=== PATIENT | male | born 1970 | race Caucasian/White ===

== ENCOUNTER → 2017-01-15 | Outpatient (CLI) | payer MEDICARE, BC ==
[~2017-01-15] MED LIST: /CIPR75TA PO; /OXYC15TA; /OXYC15TA OR; CEPH2CAP PO; CIPR25SS OR; DITR5TAB PO; FE T325T PO; FLAG500T; FLAGYL; IBUP200C PO; INSUH10VL SC; INSULANT; INSULANT SQ; KEFL500C OR; KEFL500C7 PO; LEVA250T PO; METH10TA2 PO; NOVOINJ3; NOVOLOG100 MG/ML; NOVOLOG100 MG/ML SQ; OXYC5CAP4; PREG100CA; PREG100CA PO; PREG50CA PO; PRIL20CA; PRIL40CA PO
--- NOTE | 2017-01-15 23:32 | ECWPNPC ---
PATIENT NAME: GARRETT MITCHELL : 1970 GENDER: MALE VISIT DATE: 01/15/2017 DISCHARGE DATE: 01/15/17 1208 VISIT LOCKED DATE TIME: PHYSICIAN: MARY LOU COOK RESOURCE: MARY LOU COOK REASON FOR APPOINTMENT 1. BACK PAIN HISTORY OF PRESENT ILLNESS HISTORY OF PRESENT ILLNESS: HERE FOR ROUTINE F/U OF CHRONIC LEFT HIP PAIN.HAVING INCREASE IN HIP PAIN DUE TO WET WEATHER TODAY.RATING PAIN 5/10.DESCRIBES PAIN SHARP AND STABBING.CURRENTLY USING METHADONE 10MG 2 TAB BID AND OXYCODONE 15MG UP TO 6 TABS. PER DAY PRN FOR SEVERE PAIN.FINDS MEDICATION SOMEWHAT EFFECTIVE AT REDUCING PAIN AND KEEPING HIM COMFORTABLE.DENIES SIDE EFFECTS WITH MEDICATION. PAIN THE PATIENT DESCRIBES THE PAIN... FALL RISK SCREENING: SCREENING :NO FALLS IN THE PAST YEAR CURRENT MEDICATIONS TAKING LANTUS 32 UNITS SUBCUTANEOUS DAILY TAKING NOVOLOG 100 UNIT/ML SOLUTION SUBCUTANEOUS SLIDING SCALE WITH MEALS TAKING TYLENOL EXTRA STRENGTH 500 MG TABLET 2 TABLETS NEEDED ORALLY EVERY 6 HRS TAKING OXYCODONE HCL 15 MG TABLET 1 ORALLY Q4-6H MDD 6 TAKING METHADONE HCL 10 MG TABLET 2 ORALLY BID MDD4 TAKING KEFLEX 500 MG CAPSULE 1 CAPSULE ORALLY TWICE A DAY NOT-TAKING METHADONE HCL 20 MG TABLET 2 ORALLY BID MDD4 NOT-TAKING PRILOSEC 40 MG CAPSULE DELAYED RELEASE 1 CAPSULE ORALLY ONCE A DAY NOT-TAKING IBUPROFEN 200 MG #60 200 MG TABLETS 2-4 TABLETS ORALLY EVERY 6-8 HOURS NOT-TAKING TESTOSTERONE 30 MG MISCELLANEOUS 1 10 MG TAB ORALLY DAILY NOT-TAKING CIPROFLOXACIN HCL 500 MG TABLET 1 TABLET ORALLY TWICE A DAY NOT-TAKING CLINDAMYCIN HCL 300 MG CAPSULE 1 CAPSULE ORALLY EVERY 8 HRS MEDICATION LIST REVIEWED AND RECONCILED WITH THE PATIENT PAST MEDICAL HISTORY DM CHRONIC BACK PAIN PARAPLEGIC ALLERGIES BACTRIM: NAUSEA/VOMITING: SIDE EFFECTS SOCIAL HISTORY GENERAL: TOBACCO USE ARE YOU A:NONSMOKER 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 NEW PATIENT PAIN DIARY TODAY'S VISITNOTES FROM 0-10, WHAT LEVEL IS YOUR PAIN TODAY?0 PAIN CLINIC PFS, CLERGY, PUBLIC HEALTH REFERRALS PFS REFERRAL NEEDED?NO CLERGY REFERRAL NEEDED?NO PUBLIC HEALTH REFERRAL NEEDED?NO WAS THE PROVIDER NOTIFIED OF ANY PERTINENT INFO?NO PFS REFERRAL NEEDED?NO CLERGY REFERRAL NEEDED?NO PUBLIC HEALTH REFERRAL NEEDED?NO WAS THE PROVIDER NOTIFIED OF ANY PERTINENT INFO?NO REVIEW OF SYSTEMS CONSTITUTIONAL: ANY CHANGE IN YOUR MEDICAL CONDITION? NO . CHILLS NO . FEVER NO . INFECTION: DO YOU HAVE NEW INFECTIONS? NO . DO YOU HAVE HISTORY OF MRSA? NO . MUSCULOSKELETAL: ANY NEW PATTERNS OF PAIN OR NUMBNESS? NO . GASTROENTEROLOGY: ANY NEW CHANGE IN BOWEL CONTROL? NO . GENITOURINARY: ANY NEW CHANGE IN BLADDER CONTROL? NO . IS THERE A CHANCE YOU COULD BE ? NO . HEMATOLOGY/LYMPH: DO YOU TAKE ANY BLOOD THINNERS? (FOR EXAMPLE- COUMADIN, PLAVIX, AGGRENOX, PLATEL, PRADAXA, OR XARELTO) NO . WHEN WAS YOUR LAST DOSE? DATE: TIME: . NEUROLOGY: HAVE YOU FALLEN IN THE PAST 6 MONTHS? NO . ANY NEW EXTREMITY NUMBNESS OR WEAKNESS? NO . CARDIOLOGY: DO YOU HAVE A PACEMAKER OR DEFIBRILLATOR? NO . RESPIRATORY: HAVE YOU BEEN SICK IN THE PAST WEEK? NO . FEVER NO . FLU LIKE SYMPTOMS? NO . COUGH NO . INTEGUMENTARY: DO YOU HAVE ANY RASHES OR OPEN SORES? YES SACRAL WOUND WITH WOUND VAC . ALLERGIC/IMMUNO: ARE YOU ALLERGIC TO SHELLFISH OR IV DYE? NO . ANY NEW ALLERGIES? NO . PSYCHIATRIC: DO YOU HAVE THOUGHTS OF HURTING YOURSELF OR SOMEONE ELSE? NO . ARE YOU ABUSED, NEGLECTED, OR IN AN UNSAFE ENVIRONMENT? NO . ENDOCRINOLOGY: ARE YOU DIABETIC? NO . OTHER: DO YOU NEED ANY PRESCRIPTIONS? YES OXYCODONE/METHADONE . IF YES, PLEASE LIST: ____ . ANY NEW PROBLEMS WITH YOUR MEDICATIONS? NO . WHEN DID YOU LAST EAT? ____ . WHEN DID YOU LAST DRINK? ____ . WHAT DID YOU LAST DRINK? ____ . NAME OF PERSON DRIVING YOU HOME? ____ . DO YOU HAVE ANY OTHER QUESTIONS OR CONCERNS NO . REVIEWED BY: PROVIDER: MARY LOU FARRELL . VITAL SIGNS WT 170 LBS, HT 69 IN, BMI 25.10 INDEX, BP 132/73 MM HG, HR 100 /MIN, RR 18 /MIN, TEMP 97.2 F, OXYGEN SAT % 100%, NA INITIALS SC 11:12, REVIEWED BY: KG. EXAMINATION GENERAL EXAMINATION: LUNGS:LUNG SOUNDS ARE CLEAR. HEART:HEART RATE REGULAR. MUSCULOSKELETAL:*PARAPLEGIA NAVAL DOWN. ASSESSMENTS CHRONIC BILATERAL LOW BACK PAIN WITHOUT SCIATICA - M54.5 (PRIMARY) CHRONIC PRESCRIPTION OPIATE USE - Z79.899 TREATMENT CHRONIC BILATERAL LOW BACK PAIN WITHOUT SCIATICA REFILL OXYCODONE HCL TABLET, 15 MG, 1, ORALLY, Q4-6H MDD 6, 90 DAYS, 540, REFILLS 0 REFILL METHADONE HCL TABLET, 10 MG, 2, ORALLY, BID MDD4, 90 DAYS, 360, REFILLS 0 NOTES: ISTOP REGISTRY REVIEWED AND DEMNOSTRATES COMPLLIANCE. BRINGS IN MEDICATIONS WHICH IS APPROPRIATE FOR WHAT WAS DISPENSED. RECENT URINE TOXICOLOGY REVIEWED. NO UNAUTHORIZED MEDICATIONS. NO ILLICIT SUBSTANCES AND PRESCRIBED MEDICATIONS WERE PRESENT. , RISKS AND BENEFITS OF NARCOTIC/OPIOD MEDICATIONS WERE REVIEWED WITH PATIENT - THIS INCLUDES BUT IS NOT LIMITED TO RISK OF DEPENDANCE/DEVELOPMENT OF ADDICTION, MOOD DISTURBANCE AND DEPRESSION, OSTEOPOROSIS, HORMONAL AND LABIDAL CHANGES, RESPIRATORY DEPRESSION AND . PATIENT IS ADVISED NOT TO DRIVE WHILE ON THESE MEDICATIONS.URINE TOX TODAY. PROCEDURE CODES FA211 ESTABILISHED PATIENT [facility] FACILITY CHARGE G8730 PAIN ASSESS POS TOOL F/U PLAN DOC G8427 DOC MEDS VERIFIED W/PT OR RE DISPOSITION & COMMUNICATION FOLLOW UP 3 MONTHS ELECTRONICALLY SIGNED BY BUD DAMON ON 01/15/2017 AT 04:28 PM EST DISCLAIMER : THIS IS A VISIT SUMMARY EXTRACTED FROM THE [employer] CHART. IT IS NOT A COPY OF THE [employer] PROGRESS NOTE. [email or web address]
== END ==
LOC: M PAIN 11:00
PROVIDERS: ATTEND Nurse Practitioner Family
DX: Z09 Encounter for follow-up examination after completed treatment for conditions other than malignant neoplasm (principal); G89.29 Other chronic pain; M54.5 Low back pain; E11.9 Type 2 diabetes mellitus without complications; G82.20 Paraplegia, unspecified; Z88.1 Allergy status to other antibiotic agents; Z79.4 Long term (current) use of insulin; Z79.891 Long term (current) use of opiate analgesic; Z79.899 Other long term (current) drug therapy; Z86.59 Personal history of other mental and behavioral disorders

== ENCOUNTER → 2017-01-26 | Outpatient (CLI) | payer MEDICARE, BC ==
[2017-01-26 13:55] LABS: CALCIUM LEVEL 7.6 MG/DL (8.5-10.1); CREATININE FOR GFR 2.21 MG/DL (0.70-1.30); GLOMERULAR FILTRATION RATE 34.6 (>60); POTASSIUM SERUM 4.7 MEQ/L (3.5-5.1)
== END ==
LOC: M LAB 12:45
PROVIDERS: ATTEND Nurse Practitioner Women's Health
DX: N13.39 Other hydronephrosis (principal); N26.1 Atrophy of kidney (terminal)

== ENCOUNTER → 2017-01-28 | Outpatient (REF) | payer MEDICARE, BC | LOC: M LAB REF 16:47 | PROVIDERS: ATTEND Internal Medicine Nephrology | DX: D50.0 Iron deficiency anemia secondary to blood loss (chronic) (principal) ==

== ENCOUNTER 2017-01-29 07:59 | Outpatient (CLI) | payer MEDICARE, BC | END 2017-01-29 12:45 | disposition home or self-care (01) | LOC: M INFU 07:59 | PROVIDERS: ATTEND Internal Medicine Nephrology | DX: D64.9 Anemia, unspecified (principal); N18.3 Chronic kidney disease, stage 3 (moderate) | CPT/HCPCS: 36430; P9016 ==

== ENCOUNTER → 2017-01-30 | Outpatient (CLI) | payer MEDICARE, BC ==
--- NOTE | 2017-01-30 14:07 | REP ---
CT ABDOMEN PELVIS WITHOUT IV OR ORAL CONTRAST: HISTORY: Hydronephrosis. Comparison study July 23, 2016. FINDINGS: Preliminary rn camp radiograph demonstrates a vena cava filter in place. Multisegment lumbar spine fusion is seen with metallic screw plate fixation device and cage-like metallic material across several lumbar spine segments unchanged. There are extensive chronic changes with bone resorption and remodeling in the hips and lower pelvis bilaterally. This is most pronounced about the left hip and left ischial region. There is evidence of a left femoral neck fracture appearing in the interval since the comparison study of July 23, 2016. CT FINDINGS: There is an area of linear fibrosis in the lingular segment of the left upper lobe at the left lung base. Lung bases are otherwise essentially clear. Some pleural calcification is seen. No focal hepatic or splenic lesion is seen. No adrenal lesion is observed. There is left renal cortical atrophy and moderate left-sided hydronephrosis again noted. The cortical atrophy in the left kidney appears somewhat more pronounced today than on the prior study. There is spray artifact from the fusion hardware in the lumbar spine. There are gallstones in the small contracted gallbladder. A right lower quadrant colostomy is noted. The Syed catheter is seen in the suprapubic position. No bowel obstruction is seen. Normal caliber aorta is noted. Right kidney is unremarkable. There are extensive postsurgical changes with fusion of the lumbar spine as before. The patient has developed progressive bony resorption change about the left hip. Resorption is seen along the posterior aspect of the acetabulum, extensively in the inferior pubic ramus, in the supra-acetabular iliac bone anteriorly and fragmented resorptive changes seen in the proximal femur on the left with a femoral neck fracture. This is ununited and displaced. Multiple bone fragments are seen. There is significant soft tissue swelling with low density area suggesting fluid all about the proximal femur left hip and anterior aspect of the left pelvis. This extends into the proximal thigh on the left and this soft tissue swelling contains multiple tiny air bubbles. This suggests active infection and osteomyelitis. This periarticular complex fluid collection with fragmentation and bony resorptive change occupies an area approximately 10 x 10 x 13 cm. Perhaps because of some spray artifact emanating from the lumbar spine metallic material, it is difficult to identify the left ureter. No definite point of obstruction is seen. IMPRESSION: 1. Progressive bony destructive osteomyelitis process with large soft tissue abscess containing some soft tissue gas about the left hip. There is a fracture of the left femoral neck which is ununited and displaced. Chronic osteomyelitis. Large abscess. 2. Moderate left-sided hydronephrosis and moderate left renal atrophy. This atrophy is more prominent than on the prior study. 3. Right lower quadrant colostomy. Suprapubic urinary catheter and prior lumbar spine fusion again seen. Signed by Russ Child MD 01/30/2017 03:28 P
== END ==
LOC: M RAD 12:12
PROVIDERS: ATTEND Nurse Practitioner Women's Health
DX: S79.092A Other physeal fracture of upper end of left femur, initial encounter for closed fracture (principal); X58.XXXA Exposure to other specified factors, initial encounter; Y92.9 Unspecified place or not applicable; Y93.9 Activity, unspecified; Y99.9 Unspecified external cause status; N26.1 Atrophy of kidney (terminal); N13.30 Unspecified hydronephrosis; M86.18 Other acute osteomyelitis, other site; L02.416 Cutaneous abscess of left lower limb; Z93.3 Colostomy status; Z96.0 Presence of urogenital implants; Z98.1 Arthrodesis status

== ENCOUNTER → 2017-02-09 | Outpatient (REF) | payer MEDICARE, BC ==
[2017-02-09 19:15] LABS: PERCENT SATURATION 11.8 % (19.7-37.4)
== END ==
LOC: M LAB REF 17:12
PROVIDERS: ATTEND Internal Medicine Medical Oncology
DX: D64.9 Anemia, unspecified (principal)

== ENCOUNTER → 2017-02-16 | Outpatient (REF) | payer MEDICARE, BC ==
[2017-02-16 19:52] LABS: FREE T4 1.27 NG/DL (0.76-1.46)
== END ==
LOC: M LAB REF 17:04
PROVIDERS: ATTEND Internal Medicine Medical Oncology
DX: D64.9 Anemia, unspecified (principal)

== ENCOUNTER → 2017-03-02 | Outpatient (REF) | payer MEDICARE, BC ==
[2017-03-02 13:52] LABS: PERCENT SATURATION 15.3 % (19.7-37.4)
== END ==
LOC: M LAB REF 12:52
PROVIDERS: ATTEND Internal Medicine Medical Oncology
DX: D64.9 Anemia, unspecified (principal)

== ENCOUNTER 2017-03-03 11:53 | Outpatient (CLI) | payer MEDICARE, BC ==
[~2017-03-03] VITALS: Ht 175.3 cm; Wt 77.0 kg
[~2017-03-03 11:53] MED LIST changes: +ACETAMINOPHEN TAB 650MG DOSE (2X325MG) PO SCH; +diphenhydrAMINE 25 MG CAP PO SCH
== END 2017-03-03 16:00 | disposition home or self-care (01) ==
LOC: M INFU 11:53
PROVIDERS: ATTEND Internal Medicine Medical Oncology
DX: D64.9 Anemia, unspecified (principal)
CPT/HCPCS: 36430; P9016

== ENCOUNTER → 2017-06-03 | Outpatient (CLI) | payer MEDICARE, BC ==
[~2017-06-03] MED LIST changes: -ACETAMINOPHEN TAB 650MG DOSE (2X325MG) PO SCH; +CEPH500C; -IBUP200C PO; +IBUP200C10 PO; +KEFL500C17 PO; -KEFL500C7 PO; +LANTINJ4; +LEVA1TAB PO; -LEVA250T PO; +METH10TA2; +NORCOTAB PO; +OXYC15TA76; +PRIL20TA2; +VITA1CAP25; -diphenhydrAMINE 25 MG CAP PO SCH
--- NOTE | 2017-06-25 00:27 | ECWPNPC ---
PATIENT NAME: GARRETT MITCHELL : 1970 GENDER: MALE VISIT DATE: 06/03/2017 DISCHARGE DATE: 06/03/17 1212 VISIT LOCKED DATE TIME: PHYSICIAN: MARY LOU COOK RESOURCE: MARY LOU COOK REASON FOR APPOINTMENT 1. LOW BACK HISTORY OF PRESENT ILLNESS HISTORY OF PRESENT ILLNESS: HERE FOR ROUTINE F/U OF CHRONIC LEFT HIP PAIN.HAVING INCREASE IN HIP PAIN DUE TO WET WEATHER TODAY.RATING PAIN 5/10.DESCRIBES PAIN SHARP AND STABBING.CURRENTLY USING METHADONE 10MG 2 TAB BID AND OXYCODONE 15MG UP TO 6 TABS. PER DAY PRN FOR SEVERE PAIN.FINDS MEDICATION SOMEWHAT EFFECTIVE AT REDUCING PAIN AND KEEPING HIM COMFORTABLE.DENIES SIDE EFFECTS WITH MEDICATION.HAS HAD BILATERAL HIP SURGERY AND LOW BACK SURGERY PAST FEW MONTHS IN [place].HAS WOUND VACS IN PLACE.WORSE AREA OF PAIN IS LOW BACK. PAIN THE PATIENT DESCRIBES THE PAIN... THE PATIENT DESCRIBES THE PAIN... FALL RISK SCREENING: SCREENING :NO FALLS IN THE PAST YEAR CURRENT MEDICATIONS TAKING LANTUS 32 UNITS SUBCUTANEOUS DAILY TAKING NOVOLOG 100 UNIT/ML SOLUTION SUBCUTANEOUS SLIDING SCALE WITH MEALS TAKING KEFLEX 500 MG CAPSULE 1 CAPSULE ORALLY TWICE A DAY TAKING OXYCODONE HCL 15 MG TABLET 1 ORALLY Q4-6H MDD 6 TAKING METHADONE HCL 10 MG TABLET 2 ORALLY BID MDD4 NOT-TAKING TYLENOL EXTRA STRENGTH 500 MG TABLET 2 TABLETS NEEDED ORALLY EVERY 6 HRS NOT-TAKING METHADONE HCL 20 MG TABLET 2 ORALLY BID MDD4 NOT-TAKING PRILOSEC 40 MG CAPSULE DELAYED RELEASE 1 CAPSULE ORALLY ONCE A DAY NOT-TAKING IBUPROFEN 200 MG #60 200 MG TABLETS 2-4 TABLETS ORALLY EVERY 6-8 HOURS NOT-TAKING TESTOSTERONE 30 MG MISCELLANEOUS 1 10 MG TAB ORALLY DAILY NOT-TAKING CIPROFLOXACIN HCL 500 MG TABLET 1 TABLET ORALLY TWICE A DAY NOT-TAKING CLINDAMYCIN HCL 300 MG CAPSULE 1 CAPSULE ORALLY EVERY 8 HRS MEDICATION LIST REVIEWED AND RECONCILED WITH THE PATIENT PAST MEDICAL HISTORY DM CHRONIC BACK PAIN PARAPLEGIC ALLERGIES BACTRIM: NAUSEA/VOMITING: SIDE EFFECTS SURGICAL HISTORY SKIN FLAP 09/05 18 PLUS BACK SURGERY 2004 TO PRESENT SUPERPUBIC CATHETER PLACEMENT 12/06/14 SKIN FLAP ON BUTTOCKS 04/2016 HIP SURGERY 11/07 R HIP SURGERY 03/2017 L HIP SURGERY 03/2017 LEFT FEMUR RESECTION, PARTIAL 03/2017 SPINAL SURGERY 04/2017 HOSPITALIZATION/MAJOR DIAGNOSTIC PROCEDURE [facility]NEY INFECTION 11/05 SURGERY RELATED REVIEW OF SYSTEMS REVIEWED BY: PROVIDER: MARY LOU FARRELL . CONSTITUTIONAL: ANY CHANGE IN YOUR MEDICAL CONDITION? NO . CHILLS NO . FEVER NO . INFECTION: DO YOU HAVE NEW INFECTIONS? NO . DO YOU HAVE HISTORY OF MRSA? NO . MUSCULOSKELETAL: ANY NEW PATTERNS OF PAIN OR NUMBNESS? NO . GASTROENTEROLOGY: ANY NEW CHANGE IN BOWEL CONTROL? NO . GENITOURINARY: ANY NEW CHANGE IN BLADDER CONTROL? NO . IS THERE A CHANCE YOU COULD BE ? NO . HEMATOLOGY/LYMPH: DO YOU TAKE ANY BLOOD THINNERS? (FOR EXAMPLE- COUMADIN, PLAVIX, AGGRENOX, PLATEL, PRADAXA, OR XARELTO) NO . WHEN WAS YOUR LAST DOSE? DATE: TIME: . NEUROLOGY: HAVE YOU FALLEN IN THE PAST 6 MONTHS? NO . ANY NEW EXTREMITY NUMBNESS OR WEAKNESS? NO . CARDIOLOGY: DO YOU HAVE A PACEMAKER OR DEFIBRILLATOR? NO . RESPIRATORY: HAVE YOU BEEN SICK IN THE PAST WEEK? NO . FEVER NO . FLU LIKE SYMPTOMS? NO . COUGH NO . INTEGUMENTARY: DO YOU HAVE ANY RASHES OR OPEN SORES? YES, SURGICAL WOUNDS, HIPS AND BACK . ALLERGIC/IMMUNO: ARE YOU ALLERGIC TO SHELLFISH OR IV DYE? NO . ANY NEW ALLERGIES? NO . PSYCHIATRIC: DO YOU HAVE THOUGHTS OF HURTING YOURSELF OR SOMEONE ELSE? NO . ARE YOU ABUSED, NEGLECTED, OR IN AN UNSAFE ENVIRONMENT? NO . ENDOCRINOLOGY: ARE YOU DIABETIC? YES . OTHER: DO YOU NEED ANY PRESCRIPTIONS? YES, OXYCODONE, METHADONE . IF YES, PLEASE LIST: ____ . ANY NEW PROBLEMS WITH YOUR MEDICATIONS? NO . WHEN DID YOU LAST EAT? ____ . WHEN DID YOU LAST DRINK? ____ . WHAT DID YOU LAST DRINK? ____ . NAME OF PERSON DRIVING YOU HOME? ____ . DO YOU HAVE ANY OTHER QUESTIONS OR CONCERNS NO . VITAL SIGNS WT 160.0 LBS, HT 69 IN, BMI 23.63 INDEX, BP 133/60 MM HG, HR 95 /MIN, RR 16 /MIN, TEMP 97.6 F, OXYGEN SAT % 99%, SAFE IN ENV? (Y/N) Y, NA INITIALS TL 1052, REVIEWED BY: [email or web address] WEIGHT, PT STATED, UNABLE TO STAND- TL. EXAMINATION GENERAL EXAMINATION: LUNGS:LUNG SOUNDS ARE CLEAR. HEART:HEART RATE REGULAR. MUSCULOSKELETAL:*PARAPLEGIA NAVAL DOWN. ASSESSMENTS CHRONIC BILATERAL LOW BACK PAIN WITHOUT SCIATICA - M54.5 (PRIMARY) CHRONIC PRESCRIPTION OPIATE USE - Z79.899 TREATMENT CHRONIC BILATERAL LOW BACK PAIN WITHOUT SCIATICA REFILL OXYCODONE HCL TABLET, 15 MG, 1, ORALLY, Q4-6H MDD 6, 90 DAYS, 540, REFILLS 0 REFILL METHADONE HCL TABLET, 10 MG, 2, ORALLY, BID MDD4, 90 DAYS, 360, REFILLS 0 NOTES: ISTOP REGISTRY REVIEWED AND DEMNOSTRATES COMPLLIANCE. BRINGS IN MEDICATIONS WHICH IS APPROPRIATE FOR WHAT WAS DISPENSED. RECENT URINE TOXICOLOGY REVIEWED. NO UNAUTHORIZED MEDICATIONS. NO ILLICIT SUBSTANCES AND PRESCRIBED MEDICATIONS WERE PRESENT. , RISKS AND BENEFITS OF NARCOTIC/OPIOD MEDICATIONS WERE REVIEWED WITH PATIENT - THIS INCLUDES BUT IS NOT LIMITED TO RISK OF DEPENDANCE/DEVELOPMENT OF ADDICTION, MOOD DISTURBANCE AND DEPRESSION, OSTEOPOROSIS, HORMONAL AND LABIDAL CHANGES, RESPIRATORY DEPRESSION AND . PATIENT IS ADVISED NOT TO DRIVE WHILE ON THESE MEDICATIONS. PROCEDURE CODES FA211 ESTABILISHED PATIENT [facility] CHARGE DISPOSITION & COMMUNICATION FOLLOW UP 3 MONTHS ELECTRONICALLY SIGNED BY BUD DAMON ON 06/24/2017 AT 07:36 PM EDT DISCLAIMER : THIS IS A VISIT SUMMARY EXTRACTED FROM THE [employer] CHART. IT IS NOT A COPY OF THE [employer] PROGRESS NOTE. MILDRED
== END | disposition home or self-care (01) ==
LOC: M PAIN 10:40
PROVIDERS: ATTEND Nurse Practitioner Family
DX: G89.29 Other chronic pain (principal); M54.5 Low back pain; E11.9 Type 2 diabetes mellitus without complications; G82.20 Paraplegia, unspecified; Z79.4 Long term (current) use of insulin; Z79.891 Long term (current) use of opiate analgesic; Z88.1 Allergy status to other antibiotic agents

== ENCOUNTER → 2017-06-10 | Outpatient (REF) | payer MEDICARE, BC | LOC: M LAB REF 16:52 | PROVIDERS: ATTEND Internal Medicine Nephrology | DX: D50.0 Iron deficiency anemia secondary to blood loss (chronic) (principal) ==

== ENCOUNTER 2017-06-11 10:25 | Outpatient (CLI) | payer MEDICARE, BC ==
[~2017-06-11] VITALS: Ht 177.8 cm; Wt 72.7 kg
[~2017-06-11 10:25] MED LIST changes: -CEPH500C; -LANTINJ4; -METH10TA2; -NORCOTAB PO; -OXYC15TA76; -PRIL20TA2; -VITA1CAP25
[2017-06-11 12:18] VITALS: BP 131/61
== END 2017-06-11 16:49 | disposition home or self-care (01) ==
LOC: M OPCLI4PV 10:25 → M INFU 10:25 → M MSPAV 10:35 → M OPCLI4PV 16:49
PROVIDERS: ATTEND Internal Medicine Nephrology
DX: D50.0 Iron deficiency anemia secondary to blood loss (chronic) (principal); Z88.1 Allergy status to other antibiotic agents; Z79.899 Other long term (current) drug therapy; Z79.4 Long term (current) use of insulin
CPT/HCPCS: 36430; P9016

== ENCOUNTER 2017-07-21 09:58 | Emergency (ER) | payer MEDICARE, BC ==
[~2017-07-21] VITALS: Ht 175.3 cm; Wt 63.6 kg
[2017-07-21] MEDS ORDERED: OXYC15TA76 (10:09)
[2017-07-21] MEDS ORDERED: VITA1CAP25 (10:09)
[2017-07-21] MEDS ORDERED: METH10TA2 (10:09)
[2017-07-21] MEDS ORDERED: NOVOINJ3 (10:09)
[2017-07-21] MEDS ORDERED: LANTINJ4 (10:09)
[2017-07-21] MEDS ORDERED: PRIL20TA2 (10:09)
[2017-07-21] MEDS ORDERED: CEPH500C (10:09)
[2017-07-21] MEDS ORDERED: NORCO, ANEXSIA 5/325MG TABLET (HYDROcodone/ACETAMINOPHEN) PO ONE (10:30)
--- NOTE | 2017-07-21 10:56 | REP ---
RIGHT SHOULDER, THREE VIEWS: HISTORY: Trauma. There is a comminuted fracture of the right scapula. There is no dislocation. The joint spaces are normal in appearance. IMPRESSION: Comminuted fracture of the scapula. Signed by Bladimir Santa MD 07/21/2017 10:57 A
[2017-07-21] MEDS ORDERED: NS 1,000 ML IV ONE (11:00)
[2017-07-21 11:35] LABS: INR 1.1
[2017-07-21 11:36] LABS: ADD MORPHOLOGY? YES; BASO % 0.3 % (0.0-1.0); EOS % 0.2 % (0.0-3.0); LARGE UNSTAINED CELL # 0.1 K/mm3 (0.0-0.4); LARGE UNSTAINED CELL % 0.8 % (0.0-4.0); LYMPH # 0.7 K/mm3 (1.5-4.5); LYMPH % 6.1 % (24.0-44.0); MEAN CORPUSCULAR HEMOGLOBIN 24.1 pg (27.0-33.0); MEAN CORPUSCULAR HGB CONC 29.6 g/dl (32.0-36.5); MEAN CORPUSCULAR VOLUME 81.3 fl (80.0-96.0); MONO # 0.4 K/mm3 (0.0-0.8); NEUTROPHILS # 9.4 K/mm3 (1.8-7.7); NEUTROPHILS % 88.6 % (36.0-66.0); PLATELET COUNT, AUTOMATED 568 k/mm3 (150-450); RED CELL DISTRIBUTION WIDTH 17.2 % (11.5-14.5); WHITE BLOOD COUNT 10.6 K/mm3 (4.0-10.0)
[2017-07-21 11:49] LABS: ALBUMIN 1.9 GM/DL (3.2-5.2); ALBUMIN/GLOBULIN RATIO 0.35 (1.00-1.93); ALKALINE PHOSPHATASE 242 U/L (45-117); ALT/SGPT 8 U/L (12-78); AMYLASE 21 U/L (25-115); ANION GAP 8 MEQ/L (8-16); AST/SGOT 20 U/L (15-37); BILIRUBIN,DIRECT < 0.1 MG/DL (0.0-0.2); BILIRUBIN,TOTAL 0.2 MG/DL (0.2-1.0); BLOOD UREA NITROGEN 24 MG/DL (7-18); CALCIUM LEVEL 9.1 MG/DL (8.5-10.1); CARBON DIOXIDE LEVEL 26 MEQ/L (21-32); CHLORIDE LEVEL 103 MEQ/L (98-107); GLOMERULAR FILTRATION RATE 43.9 (>60); GLUCOSE, FASTING 208 MG/DL (70-105); POTASSIUM SERUM 4.3 MEQ/L (3.5-5.1); SODIUM LEVEL 137 MEQ/L (136-145); TOTAL PROTEIN 7.4 GM/DL (6.4-8.2)
[2017-07-21] MEDS ORDERED: ONDANSETRON 4MG/2ML VIAL (J2405) IV ONE (12:00)
[2017-07-21] MEDS ORDERED: MORPHINE 4 MG/ML 1ML SYRINGE IV ONE (12:00)
--- NOTE | 2017-07-21 12:41 | REP ---
CT Head without contrast HISTORY: Trauma COMPARISON: None There is no intraparenchymal hemorrhage, acute infarct, mass or midline shift. The ventricular system and cortical sulci are dilated consistent with minimal volume loss. There is no extra cerebral collection. There is no fracture. The visualized sinuses are clear. IMPRESSION: Minimal volume loss. Signed by Bladimir Santa MD 07/21/2017 12:33 P
[2017-07-21 12:43] LABS: HYPOCHROMASIA 2+
--- NOTE | 2017-07-21 12:59 | REP ---
CT chest without contrast: History: Trauma. No comparison chest CT. CT findings: There is a linear opacity in the lingular segment of the left upper lobe at the left lung base consistent with plate-like atelectasis. There is also some linear scarring in the left lower lobe. There is no evidence of pneumothorax or hydrothorax. No contusion is seen. The thoracic aorta appears normal in size and contour. No mediastinal hematoma is seen. There is some bilateral mild gynecomastia noted incidentally. Posterior element thoracic spine fusion is seen from the mid thoracic level caudally. No rib, thoracic spine, or other fracture is seen. There is an old healed wedge compression deformity in the lower thoracic spine. This is unchanged from comparison chest x-ray December 15, 2014. Impression: No acute traumatic abnormality. Fusion changes in the lower thoracic spine. Discoid atelectasis in the left base involving the lingula. Signed by Russ Child MD 07/21/2017 05:16 P
--- NOTE | 2017-07-21 13:13 | REP ---
CT CERVICAL SPINE WITHOUT CONTRAST: HISTORY: Trauma. There are fractures of the right C6 and 7 transverse processes. There is no subluxation. Disc bulges are present at the C3-4 through C6-7 levels. There is minimal narrowing of the spinal canal. Uncinate process hypertrophy is present at the C3-4 level. This produces minimal narrowing of the C3 neural foramina. The remaining neural foramina are patent. The C5-6 intervertebral disc is decreased in height consistent with disc degeneration. IMPRESSION: 1. There are fractures of the right C6 and 7 transverse processes. 2. There is cervical spondylosis at the C3-4 through C6-7 levels. Signed by Bladimir Santa MD 07/21/2017 01:26 P
--- NOTE | 2017-07-21 13:14 | REP ---
CT ABDOMEN PELVIS WITHOUT CONTRAST: 07/21/2017 CLINICAL HISTORY: Trauma. COMPARISON: 01/30/2017 TECHNIQUE: Noncontrast scanning through the abdomen and pelvis with coronal and sagittal reconstructions. FINDINGS: CT ABDOMEN: [employer] film shows prior lumbar fusion with hardware, vena cava filter, and severe chronic changes of the pelvis and hips. An ostomy is noted over the right midabdomen. The lung bases show curvilinear fibroatelectatic change in the lingula, but are otherwise clear. The heart is not enlarged. There is no pericardial thickening or effusion. No gross hiatal hernia. I see no hepatosplenomegaly, focal hepatic or splenic lesion. Gallbladder shows a few small calcified stones in its dependent portion. It is moderately distended. Vena cava filter is again seen and unchanged. Minimal hydronephrosis on the right without stone or mass. No gross hydroureter or ureteral stone. The left kidney shows atrophy, cortical thinning, and hydronephrosis, unchanged. Extensive fusion hardware in the lumbar spine. Allons artifact with posterior elements fused throughout the spine, screws through the vertebral bodies at the upper and lower end of the fusion hardware device noted. Small bowel loops are without dilatation. There is a colostomy in the right midabdomen, unchanged. No ventral hernia. CT PELVIS: Lower sacrum has been resected, as before. Chronic thickening and destructive changes of the left greater than right hip with extensive heterotopic and dystrophic bone formation about the right hip and hemipelvis, representing chronic osteomyelitis with heterotopic bone. There is progression of the destruction of the humeral head and fragmentation thereof, it is chronically dislocated. There is a prominent open wound over the lower pelvis and sacral region extending to the inferior pubic ramus with infection and destruction of that bone on the right greater than left. Pressure ulcers, large on both sides, broader on the left, deeper on the right . Small bowel loops are not abnormally dilated. The deep pelvis, residual rectum, sigmoid, and left colon noted. They are not distended, and only small amounts of retained stool and oral contrast are seen in them, as on the previous study. The bladder shows diffuse wall thickening. There is a suprapubic catheter evident within it. IMPRESSION: 1. Severe atrophy with some hydronephrosis left kidney, unchanged. 2. Mild hydronephrosis right kidney with thickened wall of the bladder and a suprapubic Syed in place. 3. Extensive postsurgical change with fusion of the entire lumbar spine and resection of most of the sacrum below S1 with extensive chronic osteomyelitis changes with heterotopic and destructive bone appearance, left greater than right, hip. The large volume of coarse calcification adjacent to the left hip from heterotopic bone formation in the soft tissues is larger in size and number of bony fragments in the soft tissue than on the previous study. 4. Large soft tissue ulcerations in the lower pelvis over the pubic rami inferiorly, right greater than left, with exposed bone on the right and a broader ulceration on the left. 5. Cholelithiasis. 6. Right midabdomen colostomy and a vena cava filter, unchanged. No obstruction. Signed by Wilbert Thompson MD 07/22/2017 04:45 P
[2017-07-21] MEDS ORDERED: NORCOTAB PO (13:21)
[2017-07-21 13:34] VITALS: BP 163/78
--- NOTE | 2017-07-23 09:43 | ED PDOC ---
Post-Departure Follow-Up radiology report faxed to Lexis Cleaning MD Jul 23, 2017 09:43
== END 2017-07-21 13:36 | disposition home or self-care (01) ==
LOC: M ED 09:58
DX: S42.101A Fracture of unspecified part of scapula, right shoulder, initial encounter for closed fracture (principal); S12.500A Unspecified displaced fracture of sixth cervical vertebra, initial encounter for closed fracture; S12.600A Unspecified displaced fracture of seventh cervical vertebra, initial encounter for closed fracture; M47.812 Spondylosis without myelopathy or radiculopathy, cervical region; S00.01XA Abrasion of scalp, initial encounter; V86.99XA Unspecified occupant of other special all-terrain or other off-road motor vehicle injured in nontraffic accident, initial encounter; Y92.830 Public park as the place of occurrence of the external cause; E11.9 Type 2 diabetes mellitus without complications; G82.20 Paraplegia, unspecified; Z86.14 Personal history of Methicillin resistant Staphylococcus aureus infection; Z96.0 Presence of urogenital implants; Z88.1 Allergy status to other antibiotic agents; Z79.899 Other long term (current) drug therapy; Z79.4 Long term (current) use of insulin; Z79.2 Long term (current) use of antibiotics; Z79.891 Long term (current) use of opiate analgesic
CPT/HCPCS: 70450; 71250; 72125; 73030; 74176; 80048; 80076; 81001; 82150; 83605; 83690; 85025; 85610; 85730; 86850; 86900; 86901; 96361; 96374; 96375; 99284; J2405

== ENCOUNTER → 2017-09-24 | Outpatient (CLI) | payer MEDICARE, BC ==
[~2017-09-24] MED LIST changes: +CEPH500C; +LANTINJ4; +METH10TA2; +NORCOTAB PO; +OXYC15TA76; +PRIL20TA2; +VITA1CAP25
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
== END ==
LOC: M PAIN 14:30
PROVIDERS: ATTEND Nurse Practitioner Family
DX: G89.29 Other chronic pain (principal); M54.5 Low back pain; M25.559 Pain in unspecified hip; E11.9 Type 2 diabetes mellitus without complications; G82.20 Paraplegia, unspecified; F11.20 Opioid dependence, uncomplicated; Z88.1 Allergy status to other antibiotic agents; Z79.4 Long term (current) use of insulin; Z79.891 Long term (current) use of opiate analgesic; Z79.899 Other long term (current) drug therapy

== ENCOUNTER → 2017-12-31 | Outpatient (CLI) | payer MEDICARE, BC | LOC: M PAIN 09:15 | DX: M54.5 Low back pain (principal); G89.29 Other chronic pain; E11.9 Type 2 diabetes mellitus without complications; Z79.4 Long term (current) use of insulin; Z79.891 Long term (current) use of opiate analgesic; Z79.899 Other long term (current) drug therapy; Z88.1 Allergy status to other antibiotic agents; Z88.0 Allergy status to penicillin | CPT/HCPCS: G0463 ==

== ENCOUNTER → 2018-03-30 | Outpatient (CLI) | payer MEDICARE, BC | LOC: M PAIN 10:00 | DX: M54.5 Low back pain (principal); G89.29 Other chronic pain; E11.9 Type 2 diabetes mellitus without complications; G82.20 Paraplegia, unspecified; Z79.4 Long term (current) use of insulin; Z79.891 Long term (current) use of opiate analgesic; Z79.899 Other long term (current) drug therapy; Z88.1 Allergy status to other antibiotic agents | CPT/HCPCS: G0463 ==

== ENCOUNTER → 2018-08-02 | Outpatient (CLI) | payer MEDICARE, BC | LOC: M PAIN 10:00 | DX: M54.5 Low back pain (principal); G89.29 Other chronic pain; E11.9 Type 2 diabetes mellitus without complications; G82.20 Paraplegia, unspecified; F11.20 Opioid dependence, uncomplicated; Z79.4 Long term (current) use of insulin; Z79.891 Long term (current) use of opiate analgesic; Z88.1 Allergy status to other antibiotic agents | CPT/HCPCS: G0463 ==

== ENCOUNTER 2018-08-24 11:56 | Emergency (ER) | payer MEDICARE, BC ==
[2018-08-24 13:32] LABS: BASO % 0.2 % (0.0-1.0); EOS # 0.1 10^3/uL (0.0-0.50); EOS % 0.4 % (0.0-3.0); HEMATOCRIT 35.8 % (42.0-52.0); HEMOGLOBIN 10.1 g/dl (13.5-17.5); IMMATURE GRANULOCYTE % 0.5 % (0-3.0); LYMPH # 0.7 10^3/uL (1.5-4.5); MEAN CORPUSCULAR HEMOGLOBIN 20.5 pg (27.0-33.0); MEAN CORPUSCULAR HGB CONC 28.2 g/dl (32.0-36.5); MEAN CORPUSCULAR VOLUME 72.6 fl (80.0-96.0); MONO # 0.6 10^3/uL (0.0-0.8); MONO % 4.2 % (0.0-5.0); NEUTROPHILS # 12.4 10^3/uL (1.8-7.7); NEUTROPHILS % 89.7 % (36.0-66.0); PLATELET COUNT, AUTOMATED 461 10^3/uL (150-450); RED BLOOD COUNT 4.93 10^6/uL (4.30-6.10); RED CELL DISTRIBUTION WIDTH 15.7 % (11.5-14.5); WHITE BLOOD COUNT 13.9 10^3/uL (4.0-10.0)
[2018-08-24 13:34] LABS: PROTEIN, URINE MANUAL REFLEX 2+ mg/dL (NEGATIVE); SP GRAVITY,URINE MANUAL REFLEX 1.005 (1.002-1.035)
[2018-08-24 13:35] LABS: BILIRUBIN, URINE MANUAL NEGATIVE (NEGATIVE); BLOOD URINE MANUAL RFX POSITIVE (NEGATIVE); GLUCOSE, URINE (UA) MANUAL 4+(1000 MG/DL) mg/dL (NEGATIVE); KETONE, URINE MANUAL 2+ mg/dL (NEGATIVE); MICROSCOPIC INDICATED? RFX YES (NO); NITRITE, URINE MANUAL RFX NEGATIVE (NEGATIVE); UROBILINOGEN, URINE MANUAL NORMAL (NORMAL)
[2018-08-24 13:39] LABS: WBC, URINE MAN RFX TNTC /hpf (0-3)
[2018-08-24 13:40] LABS: BACTERIA, URINE LARGE AMOUNT; HYALINE CAST, URINE NONE SEEN /lpf (0-1); SQUAMOUS EPITHELIAL CELL URINE NONE SEEN /hpf (SMALL AMT); TRANSITIONAL EPI CELLS, URINE SMALL AMOUNT /hpf
[2018-08-24 14:23] LABS: MICROSCOPIC EXAM PERFORMED
[2018-08-24 14:24] LABS: ANION GAP 10 MEQ/L (8-16); BLOOD UREA NITROGEN 18 MG/DL (7-18); CALCIUM LEVEL 8.4 MG/DL (8.5-10.1); CARBON DIOXIDE LEVEL 29 MEQ/L (21-32); CHLORIDE LEVEL 95 MEQ/L (98-107); CREATININE FOR GFR 1.39 MG/DL (0.70-1.30); GLOMERULAR FILTRATION RATE 58.6 (>60); GLUCOSE, FASTING 420 MG/DL (70-100); POTASSIUM SERUM 4.7 MEQ/L (3.5-5.1); SODIUM LEVEL 134 MEQ/L (136-145)
== END 2018-08-24 15:10 | disposition home or self-care (01) ==
LOC: M ED 11:56
DX: N30.01 Acute cystitis with hematuria (principal); N30.21 Other chronic cystitis with hematuria; E11.65 Type 2 diabetes mellitus with hyperglycemia; Z96.0 Presence of urogenital implants; G82.20 Paraplegia, unspecified; K21.9 Gastro-esophageal reflux disease without esophagitis; Z87.440 Personal history of urinary (tract) infections; Z87.448 Personal history of other diseases of urinary system; Z88.1 Allergy status to other antibiotic agents; Z88.2 Allergy status to sulfonamides; Z79.4 Long term (current) use of insulin; Z79.899 Other long term (current) drug therapy
CPT/HCPCS: 80048

== ENCOUNTER → 2018-10-07 | Outpatient (CLI) | payer MEDICARE, BC ==
[2018-10-07 13:03] LABS: CREATININE FOR GFR 1.09 MG/DL (0.70-1.30); GLOMERULAR FILTRATION RATE > 60.0 (>60)
[2018-10-07 14:54] LABS: CREATININE BF 48.9 MG/DL (NOT ESTABLISHED); SOURCE, BODY FLUID CREATININE OTHER
== END ==
LOC: M LAB 11:22
DX: N31.1 Reflex neuropathic bladder, not elsewhere classified (principal)
CPT/HCPCS: 82565

== ENCOUNTER → 2018-10-18 | Outpatient (CLI) | payer MEDICARE, BC ==
[~2018-10-18] MED LIST changes: -/CIPR75TA PO; -/OXYC15TA; -/OXYC15TA OR; -CEPH2CAP PO; -CEPH500C; -CIPR25SS OR; +CYSTO-CONRAY II 17.2% 250ML VIAL (Q9958) As Ordered; -DITR5TAB PO; -FE T325T PO; -FLAG500T; -FLAGYL; -IBUP200C10 PO; -INSUH10VL SC; -INSULANT; -INSULANT SQ; -KEFL500C OR; -KEFL500C17 PO; -LANTINJ4; -LEVA1TAB PO; -METH10TA2; -METH10TA2 PO; -NORCOTAB PO; -NOVOINJ3; -NOVOLOG100 MG/ML; -NOVOLOG100 MG/ML SQ; -OXYC15TA76; -OXYC5CAP4; -PREG100CA; -PREG100CA PO; -PREG50CA PO; -PRIL20CA; -PRIL20TA2; -PRIL40CA PO; -VITA1CAP25
== END ==
LOC: M RADPRO 11:24
DX: N31.1 Reflex neuropathic bladder, not elsewhere classified (principal); N36.0 Urethral fistula; M85.9 Disorder of bone density and structure, unspecified; Z93.50 Unspecified cystostomy status
CPT/HCPCS: 52000

== ENCOUNTER → 2018-10-25 | Outpatient (REF) | payer MEDICARE, BC | LOC: M LAB REF 17:21 | DX: Z01.818 Encounter for other preprocedural examination (principal); L98.8 Other specified disorders of the skin and subcutaneous tissue; N39.0 Urinary tract infection, site not specified | CPT/HCPCS: 87186 ==

== ENCOUNTER → 2018-10-25 | Outpatient (CLI) | payer MEDICARE, BC ==
[2018-10-25 17:45] LABS: INR 1.09; PROTHROMBIN TIME 14.2 SECONDS (12.1-14.4)
== END ==
LOC: M SMT 14:23
DX: L98.8 Other specified disorders of the skin and subcutaneous tissue (principal)
CPT/HCPCS: 85610

== ENCOUNTER → 2018-11-01 | Outpatient (CLI) | payer MEDICARE, BC ==
[~2018-11-01] MED LIST changes: +/CIPR75TA PO; +/OXYC15TA; +/OXYC15TA OR; +BACT800T5 PO; +CEPH2CAP PO; +CEPH500C; +CIPR-249 PO; +CIPR25SS OR; -CYSTO-CONRAY II 17.2% 250ML VIAL (Q9958) As Ordered; +DITR5TAB PO; +FE T325T PO; +FLAG500T; +FLAGYL; +IBUP200C25 PO; +INSUH10VL SC; +INSULANT; +INSULANT SQ; +KEFL500C OR; +KEFL500C17 PO; +LANTINJ4; +LEVA1TAB2 PO; +LEVA250T13 PO; +METH10TA2; +METH10TA2 PO; +NORCOTAB PO; +NOVOINJ3; +NOVOLOG100 MG/ML; +NOVOLOG100 MG/ML SQ; +OXYC10TA12 PO; +OXYC15TA76; +OXYC5CAP4; +OXYCO5TA PO; +PEPC1TAB5 PO; +PREG100CA; +PREG100CA PO; +PREG50CA PO; +PRIL20CA; +PRIL20TA2; +PRIL40CA PO; +TETR1CAP2 PO; +TRES1INJ2 SC; +TRES1INJ2 SQ; +VITA1CAP25
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
== END ==
LOC: M PAIN 10:00
PROVIDERS: ATTEND Nurse Practitioner Family
DX: M54.5 Low back pain (principal); E11.9 Type 2 diabetes mellitus without complications; G82.20 Paraplegia, unspecified; Z88.1 Allergy status to other antibiotic agents; Z88.2 Allergy status to sulfonamides; Z79.891 Long term (current) use of opiate analgesic; Z79.899 Other long term (current) drug therapy; Z79.4 Long term (current) use of insulin

== ENCOUNTER 2018-11-03 08:53 | Day surgery (SDC) | payer MEDICARE, BC ==
[2018-11-03] MEDS ORDERED: LR 1,000 ML IV ×2 (09:00→14:45)
[2018-11-03 10:18] LABS: BEDSIDE GLUCOSE 145 MG/DL (70-105)
[2018-11-03] MEDS ORDERED: ONDANSETRON 4MG/2ML VIAL (J2405) As Ordered (11:59)
[2018-11-03] MEDS ORDERED: LIDOCAINE 2% INJ 100 MG/5 ML SDV (FOR ANES.) As Ordered (11:59)
[2018-11-03] MEDS ORDERED: PROPOFOL 200 MG/20 ML VIAL As Ordered (11:59)
[2018-11-03] MEDS ORDERED: MIDAZOLAM INJ 2 MG/2 ML VIAL (J2250) As Ordered (12:00)
[2018-11-03] MEDS ORDERED: fentaNYL 100 MCG/2 ML INJECTION (J3010) As Ordered ×2 (12:00→13:39)
[2018-11-03] MEDS: GENTAMICIN 80 MG in APPROPRIATE DILUENT 1 EA IV (13:48)
[2018-11-03] MEDS ORDERED: PERCOCET 5MG/325MG TAB PO (14:45)
[2018-11-03] MEDS ORDERED: ONDANSETRON 4MG/2ML VIAL (J2405) IV (14:45)
[2018-11-03] MEDS ORDERED: ACETAMINOPHEN TAB 650MG DOSE (2X325MG) PO (14:45)
[2018-11-03] MEDS ORDERED: fentaNYL 100 MCG/2 ML INJECTION (J3010) IV (14:45)
[2018-11-03 15:01] LABS: BEDSIDE GLUCOSE 56 MG/DL (70-105)
[2018-11-03 15:06] LABS: BEDSIDE GLUCOSE 64 MG/DL (70-105)
[2018-11-03 15:23] LABS: BEDSIDE GLUCOSE 116 MG/DL (70-105)
== END 2018-11-03 15:55 | disposition home or self-care (01) ==
LOC: M SDC 08:53
DX: N35.919 Unspecified urethral stricture, male, unspecified site (principal); N36.0 Urethral fistula; E10.9 Type 1 diabetes mellitus without complications; G82.22 Paraplegia, incomplete; A49.02 Methicillin resistant Staphylococcus aureus infection, unspecified site; G62.9 Polyneuropathy, unspecified; S71.101D Unspecified open wound, right thigh, subsequent encounter; S31.809D Unspecified open wound of unspecified buttock, subsequent encounter; Z88.1 Allergy status to other antibiotic agents; Z79.899 Other long term (current) drug therapy; Z79.4 Long term (current) use of insulin; Z99.3 Dependence on wheelchair
CPT/HCPCS: 52276

== ENCOUNTER → 2018-11-29 | Outpatient (CLI) | payer MEDICARE, BC | LOC: M PT 12:28 | PROVIDERS: ATTEND Family Medicine | DX: G82.21 Paraplegia, complete (principal) | CPT/HCPCS: 97161; 97530; G8978; G8979; G8980 ==

== ENCOUNTER → 2018-12-01 | Outpatient (CLI) | payer MEDICARE, BC ==
[~2018-12-01] MED LIST changes: +CYSTO-CONRAY II 17.2% 250ML VIAL (Q9958) As Ordered ONE
--- NOTE | 2018-12-01 17:48 | REP ---
CYSTOGRAM The procedure was performed under the direct supervision of Dr. Child. The images were reviewed with Dr. Child. Exam is compared to a previous study performed on 10/18/2018. The patient has a history of neurogenic bladder. The patient arrived in the department with an existing cystostomy catheter and urethral catheter. The cystostomy catheter was connected and the approximately 125 ml of Cysto-Conray II was instilled into the bladder. The urinary bladder appears intact. There is right vesicle ureteral reflux again seen. 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 There is mild right-sided vesicoureteral reflux as seen previously. 0.8 minutes of fluoroscopy time was utilized for this procedure. Reviewed by OLIVIER Tello 12/01/2018 03:03 P Electronically Signed by Russ Child MD 12/01/2018 05:40 P
== END ==
LOC: M RADPRO 09:52
PROVIDERS: ATTEND Urology
DX: N36.0 Urethral fistula (principal)
CPT/HCPCS: 74430; Q9958

== ENCOUNTER → 2018-12-02 | Outpatient (REF) | payer MEDICARE, BC ==
[~2018-12-02] MED LIST changes: -CYSTO-CONRAY II 17.2% 250ML VIAL (Q9958) As Ordered ONE
== END ==
LOC: M SMT 10:54
PROVIDERS: ATTEND Urology
DX: N39.0 Urinary tract infection, site not specified (principal)
CPT/HCPCS: 51701; 87088; 87186; G0463

== ENCOUNTER → 2019-08-24 | Outpatient (CLI) | payer MEDICARE, BC ==
[~2019-08-24] MED LIST changes: -/OXYC15TA; -/OXYC15TA OR; +HYDR-3715 PO; -NORCOTAB PO; +OXYC1TAB32; +OXYC1TAB32 OR
== END ==
LOC: M PAIN 14:15
PROVIDERS: ATTEND Nurse Practitioner Family
DX: M54.5 Low back pain (principal); G89.29 Other chronic pain; E11.9 Type 2 diabetes mellitus without complications; Z88.1 Allergy status to other antibiotic agents; Z79.4 Long term (current) use of insulin; Z79.891 Long term (current) use of opiate analgesic; Z79.899 Other long term (current) drug therapy

== ENCOUNTER → 2019-09-14 | Outpatient (REF) | payer MEDICARE, BC ==
[2019-09-15 13:59] LABS: PERCENT SATURATION 14.1 % (19.7-50.0)
== END ==
LOC: M LAB REF 12:49
PROVIDERS: ATTEND Nurse Practitioner Family
DX: D64.9 Anemia, unspecified (principal)

== ENCOUNTER → 2020-01-18 | Outpatient (CLI) | payer MEDICARE, BC ==
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
== END ==
LOC: M PAIN 09:45
PROVIDERS: ATTEND Nurse Practitioner Family
DX: M54.5 Low back pain (principal)

== ENCOUNTER → 2020-04-17 | Outpatient (CLI) | payer MEDICARE, BC ==
[~2020-04-17] MED LIST changes: +OXYC-1; -OXYC15TA76
--- NOTE | 2020-04-19 03:42 | ECWPNPC ---
PATIENT NAME: GARRETT MITCHELL : 1970 GENDER: MALE VISIT DATE: 04/17/2020 DISCHARGE DATE: 04/17/20906 VISIT LOCKED DATE TIME: PHYSICIAN: MARY LOU COOK RESOURCE: MARY LOU COOK REASON FOR APPOINTMENT 1. 3 MONTH HISTORY OF PRESENT ILLNESS HISTORY OF PRESENT ILLNESS: PATIENT IS AGREEABLE TO TELEMED VISIT VIA ZOOM. OVERALL DOING WELL. STATES MEDICATION IS EFFECTIVE AT REDUCING PAIN AND KEEPING HIM FUNCTIONAL. DENIES ADVERSE SIDE EFFECTS. RATING PAIN LEVEL A 3/10 VAS. PAIN THE PATIENT DESCRIBES THE PAIN... FALL RISK SCREENING: SCREENING :NO FALLS REPORTED IN THE LAST YEAR CURRENT MEDICATIONS TAKING TRESIBA FLEXTOUCH 100 UNIT/ML SOLUTION PEN-INJECTOR SUBCUTANEOUS TAKING PEPSIN 10MG ORALLY PRN TAKING NOVOLOG 100 UNIT/ML SOLUTION SUBCUTANEOUS SLIDING SCALE WITH MEALS TAKING OXANDROLONE 10 MG TABLET 1 TABLET ORALLY TWICE A DAY TAKING METHADONE HCL 10 MG TABLET 2 ORALLY BID MDD4 TAKING OXYCODONE HCL 15 MG TABLET 1 ORALLY Q4-6H MDD 6 3 MOS SUPPLY CAT D CHROIC PAIN NOT-TAKING TYLENOL EXTRA STRENGTH 500 MG TABLET 2 TABLETS NEEDED ORALLY EVERY 6 HRS NOT-TAKING ZOFRAN 8 MG TABLET 1 TABLET ORALLY TWICE A DAY NEEDED FOR NAUSEA NOT-TAKING BACTRIM DS 800-160 MG TABLET 1 TABLET ORALLY DAILY NOT-TAKING FOSFOMYCIN 3 G DISSOVED IN 4 OZ WATER 3 G DISSOLVED IN 4 OZ OF WATER ORALLY EVERY 72 HOURS NOT-TAKING MACROBID 100 MG CAPSULE 1 CAPSULE WITH FOOD 1 HOUR PRIOR TO YOUR CYSTOSCOPY ORALLY DIRECTED NOT-TAKING LANTUS 32 UNITS SUBCUTANEOUS DAILY NOT-TAKING PRILOSEC 40 MG CAPSULE DELAYED RELEASE 1 CAPSULE ORALLY ONCE A DAY NOT-TAKING IBUPROFEN 200 MG #60 200 MG TABLETS 2-4 TABLETS ORALLY EVERY 6-8 HOURS NOT-TAKING TESTOSTERONE 30 MG MISCELLANEOUS 1 10 MG TAB ORALLY DAILY NOT-TAKING CIPROFLOXACIN HCL 500 MG TABLET 1 TABLET ORALLY TWICE A DAY NOT-TAKING CLINDAMYCIN HCL 300 MG CAPSULE 1 CAPSULE ORALLY EVERY 8 HRS NOT-TAKING KEFLEX 500 MG CAPSULE 1 CAPSULE ORALLY TWICE A DAY NOT-TAKING METHADONE HCL 10 MG TABLET 2 ORALLY BID MDD4 MEDICATION LIST REVIEWED AND RECONCILED WITH THE PATIENT PAST MEDICAL HISTORY DM CHRONIC BACK PAIN PARAPLEGIC BLADDER REMOVAL, LEFT KIDNEY REMOVAL, PROSTATE REMOVAL, ILEOCONDUIT ALLERGIES BACTRIM: NAUSEA/VOMITING - SIDE EFFECTS VANCOMYCIN: RED RICCO SYNDROME - ALLERGY SURGICAL HISTORY SKIN FLAP 09/05 18 PLUS BACK SURGERY 2004 TO PRESENT SUPERPUBIC CATHETER PLACEMENT 12/06/14 SKIN FLAP ON BUTTOCKS 04/2016 HIP SURGERY 11/07 R HIP SURGERY 03/2017 L HIP SURGERY 03/2017 LEFT FEMUR RESECTION, PARTIAL 03/2017 SPINAL SURGERY 04/2017 LOW BACK SKIN GRAFT & RIGHT THIGH REVISION 08/2017 RIGHT HIP REVISION CYSTOSCOPY 10/20/2018 LEFT KIDNEY REMOVAL, PROSTATE REMOVAL, BLADDER REMOVAL, CREATION OF ILEOCONDUIT 08/04/19 FLAP REVISION 10/2019 FAMILY HISTORY FATHER: ALIVE MOTHER: 2 SISTER(S) . SOCIAL HISTORY GENERAL: TOBACCO USE ARE YOU A:NONSMOKER LATEX QUESTIONNAIRE LATEX ALLERGY : HAVE YOU EVER DEVELOPED ANY TYPE OF REACTION AFTER HANDLING LATEX PRODUCTS SUCH RUBBER GLOVES, CONDOMS, DIAPHRAGMS, BALLOONS, SOCKS, OR UNDERWEAR?NO LATEX ALLERGY : HAVE YOU EVER DEVELOPED ANY TYPE OF REACTION DURING OR AFTER DENTAL APPOINTMENT, VAGINAL/RECTAL EXAMINATION, SURGICAL PROCEDURE, OR ANY OTHER EXPOSURE?NO LATEX RISK : HAVE YOU EVER HAD ANY DIFFICULTY BREATHING OR HIVES AFTER EATING OR HANDLING ANY FRUITS, OR VEGETABLES; SUCH KIWI, BANANAS, STONE FRUITS, OR CHESTNUTSNO LATEX RISK : DO YOU HAVE A PREVIOUS PERSONAL HISTORY OF MORE THAN NINE SURGERIES, SPINA BIFIDA, OR REPEATED CATHERIZATIONS? YES - PLEASE INDICATE : > 9 SURGERIES LATEX RISK : ARE YOU FREQUENTLY EXPOSED TO LATEX PRODUCTS IN YOUR OCCUPATION?NO DATE ASKED : 04/13/2020 ALCOHOL SCREENING DID YOU HAVE A DRINK CONTAINING ALCOHOL IN THE PAST YEAR?NO POINTS0 INTERPRETATIONNEGATIVE RECREATIONAL DRUG USE DRUG USE?NO CAFFEINE CAFFEINE USE?YES HOW OFTEN AND HOW MUCH? 1 BOTTLE OF SODA ROMAN CATHOLIC ROMAN CATHOLIC NO ANGLICAN BELIEFS THAT WOULD IMPACT HEALTH CARE. 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 DIET: REGULAR. EXERCISE: NONE. MARITAL STATUS: SINGLE. NEW PATIENT PAIN DIARY TODAY'S VISITNOTES 04/13/2020 FROM 0-10, WHAT LEVEL IS YOUR PAIN TODAY?3 PRECIPITATING FACTORS ACTIVITY AND SITTING UPRIGHT ALLEVIATING FACTORS MEDS AND REST PAIN CLINIC PFS, CLERGY, PUBLIC HEALTH REFERRALS PFS REFERRAL NEEDED?NO CLERGY REFERRAL NEEDED?NO PUBLIC HEALTH REFERRAL NEEDED?NO WAS THE PROVIDER NOTIFIED OF ANY PERTINENT INFO?NO HAS THE PATIENT BEEN EDUCATED REGARDING HIS/HER PLAN OF CARE?YES HAS THE PATIENT BEEN EDUCATED REGARDING PAIN, THE RISK FOR PAIN, THE IMPORTANCE OF EFFECTIVE PAIN MANAGEMENT, AND THE PAIN ASSESSMENT PROCESS?YES ADVANCE DIRECTIVE ADVANCE DIRECTIVE DISCUSSED WITH PATIENT:YES PATIENT HAS NO ADVANCED DIRECTIVES AND DECLINES INFORMATION ON HCP AT THIS TIME. HOSPITALIZATION/MAJOR DIAGNOSTIC PROCEDURE [facility] KIDNEY INFECTION 11/05 SURGERY RELATED AFTER SURGERY TO REMOVE BLADDER, KIDNEY AND PROSTATE 07/2019 INFECTION S/P KIDNEY REMOVAL &10/2019 REVIEW OF SYSTEMS REVIEWED BY: PROVIDER: MARY LOU FARRELL . CONSTITUTIONAL: ANY CHANGE IN YOUR MEDICAL CONDITION? NO . CHILLS NO . FEVER NO . INFECTION: DO YOU HAVE NEW INFECTIONS? NO . DO YOU HAVE HISTORY OF MRSA? NO . MUSCULOSKELETAL: ANY NEW PATTERNS OF PAIN OR NUMBNESS? NO . GASTROENTEROLOGY: ANY NEW CHANGE IN BOWEL CONTROL? NO . GENITOURINARY: ANY NEW CHANGE IN BLADDER CONTROL? NO . IS THERE A CHANCE YOU COULD BE ? NO . HEMATOLOGY/LYMPH: DO YOU TAKE ANY BLOOD THINNERS? (FOR EXAMPLE- COUMADIN, PLAVIX, AGGRENOX, PLATEL, PRADAXA, OR XARELTO) NO . WHEN WAS YOUR LAST DOSE? DATE: TIME: . NEUROLOGY: HAVE YOU FALLEN IN THE PAST 12 MONTHS? NO . ANY NEW EXTREMITY NUMBNESS OR WEAKNESS? NO . CARDIOLOGY: DO YOU HAVE A PACEMAKER OR DEFIBRILLATOR? NO . RESPIRATORY: HAVE YOU BEEN SICK IN THE PAST WEEK? NO . FEVER NO . FLU LIKE SYMPTOMS? NO . COUGH NO . INTEGUMENTARY: DO YOU HAVE ANY RASHES OR OPEN SORES? YES, SACRAL AREA, RESIDUAL SURGICAL INCISION, IN HEALING STAGES . ALLERGIC/IMMUNO: ARE YOU ALLERGIC TO IV DYE? NO . ANY NEW ALLERGIES? NO . PSYCHIATRIC: DO YOU HAVE THOUGHTS OF HURTING YOURSELF OR SOMEONE ELSE? NO . ARE YOU ABUSED, NEGLECTED, OR IN AN UNSAFE ENVIRONMENT? NO . ENDOCRINOLOGY: ARE YOU DIABETIC? NO . OTHER: DO YOU NEED ANY PRESCRIPTIONS? NO . IF YES, PLEASE LIST: ____ . ANY NEW PROBLEMS WITH YOUR MEDICATIONS? NO . WHEN DID YOU LAST EAT? ____ . WHEN DID YOU LAST DRINK? ____ . WHAT DID YOU LAST DRINK? ____ . NAME OF PERSON DRIVING YOU HOME? ____ . DO YOU HAVE ANY OTHER QUESTIONS OR CONCERNS NO . ASSESSMENTS CHRONIC BILATERAL LOW BACK PAIN WITHOUT SCIATICA - M54.5 (PRIMARY) CHRONIC PRESCRIPTION OPIATE USE - Z79.899 TREATMENT CHRONIC BILATERAL LOW BACK PAIN WITHOUT SCIATICA REFILL METHADONE HCL TABLET, 10 MG, 2, ORALLY, BID MDD4, 90 DAY(S), 360, REFILLS 0 REFILL OXYCODONE HCL TABLET, 15 MG, 1, ORALLY, Q4-6H MDD 6 3 MOS SUPPLY CAT D CHROIC PAIN, 90 DAY(S), 540, REFILLS 0 NOTES: RECENT URINE TOXICOLOGY REVIEWED. NO UNAUTHORIZED MEDICATIONS. NO ILLICIT SUBSTANCES AND PRESCRIBED MEDICATIONS WERE PRESENT. , ISTOP REGISTRY REVIEWED AND DEMONSTRATES COMPLLIANCE. DISPOSITION & COMMUNICATION FOLLOW UP 3 MONTHS IN CLINIC MED MGMNT (REASON: LBP) ELECTRONICALLY SIGNED BY BUD BOSTON ON 04/18/2020 AT 05:13 PM EDT DISCLAIMER : THIS IS A VISIT SUMMARY EXTRACTED FROM THE [employer] CHART. IT IS NOT A COPY OF THE [employer] PROGRESS NOTE. MTDD
== END ==
LOC: M PAIN 11:30 → M TMPAIN 11:30
PROVIDERS: ATTEND Nurse Practitioner Family
DX: M54.5 Low back pain (principal); E11.9 Type 2 diabetes mellitus without complications; Z97.4 Presence of external hearing-aid; Z79.891 Long term (current) use of opiate analgesic; Z79.899 Other long term (current) drug therapy; Z88.1 Allergy status to other antibiotic agents

== ENCOUNTER → 2020-07-18 | Outpatient (CLI) | payer MEDICARE, BC | LOC: M PAIN 09:00 | PROVIDERS: ATTEND Nurse Practitioner Family | DX: G89.4 Chronic pain syndrome (principal); Z79.891 Long term (current) use of opiate analgesic ==

== ENCOUNTER → 2021-02-22 | Outpatient (CLI) | payer MEDICARE, BC ==
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
== END ==
LOC: M PAIN 10:00
PROVIDERS: ATTEND Nurse Practitioner Family
DX: M54.5 Low back pain (principal); E11.9 Type 2 diabetes mellitus without complications; G82.20 Paraplegia, unspecified; Z79.899 Other long term (current) drug therapy; Z79.891 Long term (current) use of opiate analgesic; Z79.4 Long term (current) use of insulin; Z88.1 Allergy status to other antibiotic agents

== ENCOUNTER → 2021-04-04 | Outpatient (REF) | payer MEDICARE, BC ==
[2021-04-04 12:07] LABS: HEMOGLOBIN 9.8 g/dl (13.5-17.5); MEAN CORPUSCULAR HEMOGLOBIN 20.9 pg (27.0-33.0); MEAN CORPUSCULAR HGB CONC 27.2 g/dl (32.0-36.5); MEAN CORPUSCULAR VOLUME 76.9 fl (80.0-96.0); PLATELET COUNT, AUTOMATED 469 10^3/uL (150-450); RED BLOOD COUNT 4.68 10^6/uL (4.30-6.10); WHITE BLOOD COUNT 5.5 10^3/uL (4.0-10.0)
[2021-04-04 13:01] LABS: BLOOD UREA NITROGEN 18 MG/DL (7-18); CALCIUM LEVEL 8.8 MG/DL (8.5-10.1); CARBON DIOXIDE LEVEL 29 MEQ/L (21-32); CHLORIDE LEVEL 103 MEQ/L (98-107); CREATININE FOR GFR 1.31 MG/DL (0.70-1.30); GLOMERULAR FILTRATION RATE > 60.0 (>60); GLUCOSE, FASTING 103 MG/DL (70-100); POTASSIUM SERUM 4.3 MEQ/L (3.5-5.1); PREALBUMIN 15.2 MG/DL (20.0-40.0); SODIUM LEVEL 140 MEQ/L (136-145)
[2021-04-04 13:04] LABS: ERYTHROCYTE SEDIMENTATION RATE 59 mm/hr (0-15)
== END ==
LOC: M LAB REF 11:36
DX: L89.304 Pressure ulcer of unspecified buttock, stage 4 (principal)

== ENCOUNTER → 2021-04-25 | Outpatient (REF) | payer MEDICARE, BC ==
[2021-04-25 12:55] LABS: HEMATOCRIT 35.6 % (42.0-52.0); HEMOGLOBIN 9.8 g/dl (13.5-17.5); MEAN CORPUSCULAR HEMOGLOBIN 21.3 pg (27.0-33.0); MEAN CORPUSCULAR HGB CONC 27.5 g/dl (32.0-36.5); MEAN CORPUSCULAR VOLUME 77.2 fl (80.0-96.0); PLATELET COUNT, AUTOMATED 578 10^3/uL (150-450); RED BLOOD COUNT 4.61 10^6/uL (4.30-6.10); WHITE BLOOD COUNT 5.7 10^3/uL (4.0-10.0)
[2021-04-25 13:18] LABS: ERYTHROCYTE SEDIMENTATION RATE 84 mm/hr (0-15)
[2021-04-25 13:26] LABS: BLOOD UREA NITROGEN 18 MG/DL (7-18); CALCIUM LEVEL 8.5 MG/DL (8.5-10.1); CARBON DIOXIDE LEVEL 29 MEQ/L (21-32); CHLORIDE LEVEL 104 MEQ/L (98-107); CREATININE FOR GFR 1.35 MG/DL (0.70-1.30); GLOMERULAR FILTRATION RATE > 60.0 (>60); GLUCOSE, FASTING 64 MG/DL (70-100); PREALBUMIN 10.3 MG/DL (20.0-40.0); SODIUM LEVEL 140 MEQ/L (136-145)
== END ==
LOC: M LAB REF 12:36
PROVIDERS: ATTEND Surgery
DX: L89.304 Pressure ulcer of unspecified buttock, stage 4 (principal)

== ENCOUNTER → 2021-05-02 | Outpatient (REF) | payer MEDICARE, BC ==
[2021-05-02 11:15] LABS: HEMOGLOBIN 8.7 g/dl (13.5-17.5); MEAN CORPUSCULAR HEMOGLOBIN 20.4 pg (27.0-33.0); MEAN CORPUSCULAR HGB CONC 26.4 g/dl (32.0-36.5); MEAN CORPUSCULAR VOLUME 77.5 fl (80.0-96.0); PLATELET COUNT, AUTOMATED 568 10^3/uL (150-450); RED BLOOD COUNT 4.26 10^6/uL (4.30-6.10); WHITE BLOOD COUNT 5.7 10^3/uL (4.0-10.0)
[2021-05-02 12:37] LABS: ERYTHROCYTE SEDIMENTATION RATE 67 mm/hr (0-15)
[2021-05-02 14:01] LABS: C REACTIVE PROTEIN QUANTITATIV 11.5 MG/DL (0.00-0.30); CALCIUM LEVEL 8.1 MG/DL (8.5-10.1); CREATININE FOR GFR 1.48 MG/DL (0.70-1.30); POTASSIUM SERUM 5.4 MEQ/L (3.5-5.1); PREALBUMIN 13.8 MG/DL (20.0-40.0)
== END ==
LOC: M LAB REF 10:43
PROVIDERS: ATTEND Surgery
DX: L89.304 Pressure ulcer of unspecified buttock, stage 4 (principal)

== ENCOUNTER → 2021-05-23 | Outpatient (CLI) | payer MEDICARE, BC ==
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
== END ==
LOC: M PAIN 11:30
PROVIDERS: ATTEND Nurse Practitioner Family
DX: M54.5 Low back pain (principal); E11.9 Type 2 diabetes mellitus without complications; G82.20 Paraplegia, unspecified; Z99.3 Dependence on wheelchair; Z79.4 Long term (current) use of insulin; Z79.891 Long term (current) use of opiate analgesic; Z79.899 Other long term (current) drug therapy; Z88.1 Allergy status to other antibiotic agents; Z88.2 Allergy status to sulfonamides

== ENCOUNTER → 2021-06-20 | Outpatient (REF) | payer MEDICARE, BC ==
[2021-06-20 11:34] LABS: HEMATOCRIT 34.8 % (42.0-52.0); HEMOGLOBIN 8.9 g/dl (13.5-17.5); MEAN CORPUSCULAR HEMOGLOBIN 19.6 pg (27.0-33.0); MEAN CORPUSCULAR HGB CONC 25.6 g/dl (32.0-36.5); MEAN CORPUSCULAR VOLUME 76.8 fl (80.0-96.0); PLATELET COUNT, AUTOMATED 465 10^3/uL (150-450); RED BLOOD COUNT 4.53 10^6/uL (4.30-6.10)
[2021-06-20 12:01] LABS: ERYTHROCYTE SEDIMENTATION RATE 60 mm/hr (0-15)
[2021-06-20 12:12] LABS: C REACTIVE PROTEIN QUANTITATIV 14.3 MG/DL (0.00-0.30); CALCIUM LEVEL 8.5 MG/DL (8.5-10.1); CREATININE FOR GFR 1.36 MG/DL (0.70-1.30); GLOMERULAR FILTRATION RATE 59.5 (>60); POTASSIUM SERUM 4.4 MEQ/L (3.5-5.1); PREALBUMIN 15.8 MG/DL (20.0-40.0)
== END ==
LOC: M LAB REF 10:51
DX: L89.304 Pressure ulcer of unspecified buttock, stage 4 (principal)

== ENCOUNTER → 2021-08-27 | Outpatient (CLI) | payer MEDICARE, BC ==
[~2021-08-27] MED LIST changes: +FERR325T3 PO; +METH-1177; +METH-1177 PO; +METH10SO PO; -METH10TA2; +OXYC-1 PO; +VITA500C24 PO; +VITMTA PO
== END ==
LOC: M LAB 17:08
PROVIDERS: ATTEND Plastic Surgery
DX: D64.9 Anemia, unspecified (principal); N18.9 Chronic kidney disease, unspecified

== ENCOUNTER 2021-08-28 11:12 | Outpatient (CLI) | payer MEDICARE, BC ==
[~2021-08-28] VITALS: Ht 175.3 cm; Wt 70.0 kg
[2021-08-28] VITALS (10 sets, daily range): BP systolic 110–135; BP diastolic 53–75
== END 2021-08-28 19:05 | disposition home or self-care (01) ==
LOC: M INFU 11:12
PROVIDERS: ATTEND Plastic Surgery
DX: N18.9 Chronic kidney disease, unspecified (principal); D63.1 Anemia in chronic kidney disease; Z88.1 Allergy status to other antibiotic agents; Z88.2 Allergy status to sulfonamides
CPT/HCPCS: 36430; P9016

== ENCOUNTER → 2021-09-05 | Outpatient (REF) | payer MEDICARE, BC ==
[2021-09-05 11:45] LABS: HEMATOCRIT 35.5 % (42.0-52.0); HEMOGLOBIN 9.9 g/dl (13.5-17.5); MEAN CORPUSCULAR HGB CONC 27.9 g/dl (32.0-36.5); MEAN CORPUSCULAR VOLUME 82.6 fl (80.0-96.0); PLATELET COUNT, AUTOMATED 506 10^3/uL (150-450); WHITE BLOOD COUNT 7.3 10^3/uL (4.0-10.0)
[2021-09-05 12:17] LABS: C REACTIVE PROTEIN QUANTITATIV 16.9 MG/DL (0.00-0.30); CALCIUM LEVEL 8.1 MG/DL (8.5-10.1); CREATININE FOR GFR 2.03 MG/DL (0.70-1.30); GLOMERULAR FILTRATION RATE 37.3 (>60); PREALBUMIN 7.4 MG/DL (20.0-40.0)
[2021-09-05 13:14] LABS: ERYTHROCYTE SEDIMENTATION RATE 63 mm/hr (0-15)
== END ==
LOC: M LAB REF 11:21
PROVIDERS: ATTEND Surgery
DX: L89.304 Pressure ulcer of unspecified buttock, stage 4 (principal)

== ENCOUNTER → 2021-09-26 | Outpatient (REF) | payer MEDICARE, BC ==
[2021-09-26 12:01] LABS: HEMATOCRIT 29.6 % (42.0-52.0); HEMOGLOBIN 7.9 g/dl (13.5-17.5); MEAN CORPUSCULAR HEMOGLOBIN 22.3 pg (27.0-33.0); MEAN CORPUSCULAR HGB CONC 26.7 g/dl (32.0-36.5); MEAN CORPUSCULAR VOLUME 83.6 fl (80.0-96.0); PLATELET COUNT, AUTOMATED 622 10^3/uL (150-450); RED BLOOD COUNT 3.54 10^6/uL (4.30-6.10); WHITE BLOOD COUNT 9.6 10^3/uL (4.0-10.0)
[2021-09-26 12:24] LABS: ERYTHROCYTE SEDIMENTATION RATE 85 mm/hr (0-15)
[2021-09-26 12:39] LABS: C REACTIVE PROTEIN QUANTITATIV 12.4 MG/DL (0.00-0.30); CALCIUM LEVEL 8.2 MG/DL (8.5-10.1); CREATININE FOR GFR 1.97 MG/DL (0.70-1.30); GLOMERULAR FILTRATION RATE 38.7 (>60); POTASSIUM SERUM 4.5 MEQ/L (3.5-5.1); PREALBUMIN 9.6 MG/DL (20.0-40.0)
== END ==
LOC: M LAB REF 11:37
PROVIDERS: ATTEND Surgery
DX: L89.304 Pressure ulcer of unspecified buttock, stage 4 (principal)

== ENCOUNTER → 2021-10-09 | Outpatient (CLI) | payer MEDICARE, BC | LOC: M PAIN 13:00 | PROVIDERS: ATTEND Nurse Practitioner Family | DX: Z79.891 Long term (current) use of opiate analgesic (principal) ==

== ENCOUNTER → 2021-10-10 | Outpatient (CLI) | payer MEDICARE, BC | LOC: M PAIN 15:45 | PROVIDERS: ATTEND Anesthesiology | DX: M96.1 Postlaminectomy syndrome, not elsewhere classified (principal); G82.20 Paraplegia, unspecified; E11.9 Type 2 diabetes mellitus without complications; Z79.4 Long term (current) use of insulin; Z79.891 Long term (current) use of opiate analgesic; Z79.899 Other long term (current) drug therapy ==

== ENCOUNTER → 2021-10-31 | Outpatient (REF) | payer MEDICARE, BC ==
[2021-10-31 11:11] LABS: HEMATOCRIT 29.9 % (42.0-52.0); HEMOGLOBIN 8.3 g/dl (13.5-17.5); MEAN CORPUSCULAR HEMOGLOBIN 22.3 pg (27.0-33.0); MEAN CORPUSCULAR HGB CONC 27.8 g/dl (32.0-36.5); MEAN CORPUSCULAR VOLUME 80.4 fl (80.0-96.0); PLATELET COUNT, AUTOMATED 365 10^3/uL (150-450); RED BLOOD COUNT 3.72 10^6/uL (4.30-6.10); WHITE BLOOD COUNT 3.9 10^3/uL (4.0-10.0)
[2021-10-31 11:48] LABS: ERYTHROCYTE SEDIMENTATION RATE 70 mm/hr (0-15)
[2021-10-31 12:01] LABS: BLOOD UREA NITROGEN 22 MG/DL (7-18); C REACTIVE PROTEIN QUANTITATIV 9.37 MG/DL (0.00-0.30); CALCIUM LEVEL 8.4 MG/DL (8.5-10.1); CARBON DIOXIDE LEVEL 29 MEQ/L (21-32); CHLORIDE LEVEL 103 MEQ/L (98-107); CREATININE FOR GFR 1.29 MG/DL (0.70-1.30); GLOMERULAR FILTRATION RATE > 60.0 (>60); GLUCOSE, FASTING 134 MG/DL (70-100); PREALBUMIN 14.1 MG/DL (20.0-40.0); SODIUM LEVEL 138 MEQ/L (136-145)
== END ==
LOC: M LAB REF 10:56
PROVIDERS: ATTEND Surgery
DX: L89.304 Pressure ulcer of unspecified buttock, stage 4 (principal)

== ENCOUNTER → 2021-12-05 | Outpatient (REF) | payer MEDICARE, BC ==
[2021-12-05 12:06] LABS: HEMOGLOBIN 9.7 g/dl (13.5-17.5); MEAN CORPUSCULAR HEMOGLOBIN 21.6 pg (27.0-33.0); MEAN CORPUSCULAR HGB CONC 28.5 g/dl (32.0-36.5); MEAN CORPUSCULAR VOLUME 75.7 fl (80.0-96.0); PLATELET COUNT, AUTOMATED 373 10^3/uL (150-450); RED BLOOD COUNT 4.49 10^6/uL (4.30-6.10); WHITE BLOOD COUNT 3.5 10^3/uL (4.0-10.0)
[2021-12-05 12:31] LABS: C REACTIVE PROTEIN QUANTITATIV 11.1 MG/DL (0.00-0.30); CALCIUM LEVEL 8.9 MG/DL (8.5-10.1); CREATININE FOR GFR 1.39 MG/DL (0.70-1.30); GLOMERULAR FILTRATION RATE 57.8 (>60); POTASSIUM SERUM 4.1 MEQ/L (3.5-5.1); PREALBUMIN 9.5 MG/DL (20.0-40.0)
[2021-12-05 12:41] LABS: ERYTHROCYTE SEDIMENTATION RATE 89 mm/hr (0-15)
== END ==
LOC: M LAB REF 11:02
DX: L89.304 Pressure ulcer of unspecified buttock, stage 4 (principal)

== ENCOUNTER → 2022-01-03 | Outpatient (CLI) | payer MEDICARE, BC | LOC: M PAIN 10:30 | PROVIDERS: ATTEND Anesthesiology | DX: M96.1 Postlaminectomy syndrome, not elsewhere classified (principal); G82.20 Paraplegia, unspecified; Z79.891 Long term (current) use of opiate analgesic; E11.9 Type 2 diabetes mellitus without complications; Z79.4 Long term (current) use of insulin; Z79.899 Other long term (current) drug therapy; Z88.2 Allergy status to sulfonamides; Z88.1 Allergy status to other antibiotic agents ==

== ENCOUNTER → 2022-03-12 | Outpatient (CLI) | payer MEDICARE, BC | LOC: M PAIN 11:30 | PROVIDERS: ATTEND Anesthesiology | DX: M96.1 Postlaminectomy syndrome, not elsewhere classified (principal); R52 Pain, unspecified; E11.9 Type 2 diabetes mellitus without complications; Z88.1 Allergy status to other antibiotic agents; Z79.4 Long term (current) use of insulin; Z79.891 Long term (current) use of opiate analgesic; Z79.899 Other long term (current) drug therapy ==

== ENCOUNTER → 2022-04-22 | Outpatient (CLI) | payer MEDICARE, BC | LOC: M PAIN 14:15 | PROVIDERS: ATTEND Nurse Practitioner Family | DX: M96.1 Postlaminectomy syndrome, not elsewhere classified (principal); R52 Pain, unspecified; G82.20 Paraplegia, unspecified; E11.9 Type 2 diabetes mellitus without complications; Z79.891 Long term (current) use of opiate analgesic; Z79.899 Other long term (current) drug therapy; Z79.4 Long term (current) use of insulin; Z88.1 Allergy status to other antibiotic agents; Z88.2 Allergy status to sulfonamides ==

== ENCOUNTER → 2022-06-18 | Outpatient (CLI) | payer MEDICARE, BC | LOC: M PAIN 14:00 | PROVIDERS: ATTEND Nurse Practitioner Family | DX: M96.1 Postlaminectomy syndrome, not elsewhere classified (principal); G82.20 Paraplegia, unspecified; E11.9 Type 2 diabetes mellitus without complications; M54.9 Dorsalgia, unspecified; Z90.6 Acquired absence of other parts of urinary tract; Z90.5 Acquired absence of kidney; Z90.79 Acquired absence of other genital organ(s); Z79.891 Long term (current) use of opiate analgesic; Z79.4 Long term (current) use of insulin; Z79.899 Other long term (current) drug therapy; Z88.1 Allergy status to other antibiotic agents; Z88.2 Allergy status to sulfonamides ==

== ENCOUNTER → 2022-08-19 | Outpatient (CLI) | payer MEDICARE, BC | LOC: M PAIN 14:45 | PROVIDERS: ATTEND Nurse Practitioner Family | DX: Z53.29 Procedure and treatment not carried out because of patient's decision for other reasons (principal) ==

== ENCOUNTER → 2022-09-12 | Outpatient (CLI) | payer MEDICARE, BC | LOC: M PAIN 14:45 | PROVIDERS: ATTEND Nurse Practitioner Family | DX: Z51.81 Encounter for therapeutic drug level monitoring (principal); Z79.891 Long term (current) use of opiate analgesic; M96.1 Postlaminectomy syndrome, not elsewhere classified; E11.9 Type 2 diabetes mellitus without complications; Z90.6 Acquired absence of other parts of urinary tract; Z90.5 Acquired absence of kidney; Z90.79 Acquired absence of other genital organ(s); Z79.4 Long term (current) use of insulin; Z79.899 Other long term (current) drug therapy; Z88.1 Allergy status to other antibiotic agents; Z88.2 Allergy status to sulfonamides ==

== ENCOUNTER → 2022-12-22 | Outpatient (CLI) | payer MEDICARE, BC | LOC: M PAIN 13:45 | PROVIDERS: ATTEND Nurse Practitioner Family | DX: M96.1 Postlaminectomy syndrome, not elsewhere classified (principal); E11.9 Type 2 diabetes mellitus without complications; Z86.14 Personal history of Methicillin resistant Staphylococcus aureus infection; Z88.1 Allergy status to other antibiotic agents; Z79.4 Long term (current) use of insulin; Z79.891 Long term (current) use of opiate analgesic; Z79.899 Other long term (current) drug therapy ==

== ENCOUNTER → 2023-01-26 | Outpatient (CLI) | payer MEDICARE, BC | LOC: M PAIN 10:30 | PROVIDERS: ATTEND Nurse Practitioner Family | DX: M96.1 Postlaminectomy syndrome, not elsewhere classified (principal); E11.9 Type 2 diabetes mellitus without complications; G82.20 Paraplegia, unspecified; Z79.4 Long term (current) use of insulin; Z79.891 Long term (current) use of opiate analgesic; Z79.899 Other long term (current) drug therapy; Z88.1 Allergy status to other antibiotic agents; Z88.2 Allergy status to sulfonamides ==

== ENCOUNTER → 2023-02-27 | Outpatient (CLI) | payer MEDICARE, BC | LOC: M PAIN 10:45 | PROVIDERS: ATTEND Nurse Practitioner Family | DX: M96.1 Postlaminectomy syndrome, not elsewhere classified (principal); Z79.891 Long term (current) use of opiate analgesic; E11.9 Type 2 diabetes mellitus without complications; G82.20 Paraplegia, unspecified; Z79.4 Long term (current) use of insulin; Z79.899 Other long term (current) drug therapy; Z88.1 Allergy status to other antibiotic agents; Z88.2 Allergy status to sulfonamides ==

== ENCOUNTER → 2023-04-30 | Outpatient (CLI) | payer MEDICARE, MEDICAID | LOC: M EKG 12:28 | PROVIDERS: ATTEND Nurse Practitioner Family | DX: Z79.891 Long term (current) use of opiate analgesic (principal) ==

== ENCOUNTER → 2023-04-30 | Outpatient (CLI) | payer MEDICARE | LOC: M PAIN 13:45 | PROVIDERS: ATTEND Nurse Practitioner Family | DX: M96.1 Postlaminectomy syndrome, not elsewhere classified (principal); G89.29 Other chronic pain; E11.9 Type 2 diabetes mellitus without complications; G82.20 Paraplegia, unspecified; Z79.891 Long term (current) use of opiate analgesic; Z79.4 Long term (current) use of insulin; Z79.899 Other long term (current) drug therapy; Z88.2 Allergy status to sulfonamides; Z88.1 Allergy status to other antibiotic agents ==

== ENCOUNTER → 2023-06-30 | Outpatient (CLI) | payer MEDICARE | LOC: M PAIN 13:45 | PROVIDERS: ATTEND Nurse Practitioner Family | DX: M96.1 Postlaminectomy syndrome, not elsewhere classified (principal); G89.29 Other chronic pain; E11.9 Type 2 diabetes mellitus without complications; G82.20 Paraplegia, unspecified; Z88.2 Allergy status to sulfonamides; Z88.1 Allergy status to other antibiotic agents ==

== ENCOUNTER → 2023-09-01 | Outpatient (CLI) | payer MEDICARE | LOC: M PAIN 14:00 | PROVIDERS: ATTEND Nurse Practitioner Family | DX: M96.1 Postlaminectomy syndrome, not elsewhere classified (principal); Z79.891 Long term (current) use of opiate analgesic; G89.29 Other chronic pain; E11.9 Type 2 diabetes mellitus without complications; G82.20 Paraplegia, unspecified; Z79.899 Other long term (current) drug therapy; Z88.2 Allergy status to sulfonamides; Z88.1 Allergy status to other antibiotic agents ==

== ENCOUNTER → 2023-11-02 | Outpatient (CLI) | payer MEDICARE, MEDICAID | LOC: M PAIN 14:30 | PROVIDERS: ATTEND Nurse Practitioner Family | DX: M96.1 Postlaminectomy syndrome, not elsewhere classified (principal); E11.9 Type 2 diabetes mellitus without complications; G82.20 Paraplegia, unspecified; Z79.4 Long term (current) use of insulin; Z79.891 Long term (current) use of opiate analgesic; Z79.899 Other long term (current) drug therapy; Z88.1 Allergy status to other antibiotic agents ==

== ENCOUNTER → 2024-01-04 | Outpatient (CLI) | payer MEDICARE, MEDICAID | LOC: M PAIN 14:30 | PROVIDERS: ATTEND Nurse Practitioner Family | DX: M96.1 Postlaminectomy syndrome, not elsewhere classified (principal); G89.29 Other chronic pain; E11.9 Type 2 diabetes mellitus without complications; G82.20 Paraplegia, unspecified; Z79.4 Long term (current) use of insulin; Z79.891 Long term (current) use of opiate analgesic; Z79.899 Other long term (current) drug therapy; Z88.1 Allergy status to other antibiotic agents ==

== ENCOUNTER → 2024-03-14 | Outpatient (CLI) | payer MEDICARE, MEDICAID | LOC: M PAIN 14:00 | PROVIDERS: ATTEND Nurse Practitioner Family | DX: M96.1 Postlaminectomy syndrome, not elsewhere classified (principal); Z79.891 Long term (current) use of opiate analgesic; E11.9 Type 2 diabetes mellitus without complications; G82.20 Paraplegia, unspecified; Z79.899 Other long term (current) drug therapy; Z88.1 Allergy status to other antibiotic agents ==

== ENCOUNTER → 2024-05-13 | Outpatient (CLI) | payer MEDICARE, MEDICAID | LOC: M PAIN 14:30 | PROVIDERS: ATTEND Nurse Practitioner Family | DX: M96.1 Postlaminectomy syndrome, not elsewhere classified (principal); Z79.891 Long term (current) use of opiate analgesic; E11.9 Type 2 diabetes mellitus without complications; G82.20 Paraplegia, unspecified; Z90.5 Acquired absence of kidney; Z90.6 Acquired absence of other parts of urinary tract; Z93.6 Other artificial openings of urinary tract status; Z90.79 Acquired absence of other genital organ(s); Z79.4 Long term (current) use of insulin; Z88.1 Allergy status to other antibiotic agents; Z88.2 Allergy status to sulfonamides ==

== ENCOUNTER → 2024-07-14 | Outpatient (CLI) | payer MEDICARE, MEDICAID | LOC: M PAIN 11:45 | PROVIDERS: ATTEND Nurse Practitioner Family | DX: M96.1 Postlaminectomy syndrome, not elsewhere classified (principal); Z79.891 Long term (current) use of opiate analgesic; G89.29 Other chronic pain; E11.9 Type 2 diabetes mellitus without complications; G82.20 Paraplegia, unspecified; Z79.899 Other long term (current) drug therapy; Z79.4 Long term (current) use of insulin; Z88.1 Allergy status to other antibiotic agents ==

== ENCOUNTER → 2024-09-13 | Outpatient (CLI) | payer MEDICARE, MEDICAID | LOC: M PAIN 14:00 | PROVIDERS: ATTEND Nurse Practitioner Family | DX: M96.1 Postlaminectomy syndrome, not elsewhere classified (principal); Z79.891 Long term (current) use of opiate analgesic; G89.29 Other chronic pain; E11.9 Type 2 diabetes mellitus without complications; G82.20 Paraplegia, unspecified; Z79.4 Long term (current) use of insulin; Z79.899 Other long term (current) drug therapy; Z88.1 Allergy status to other antibiotic agents ==

== ENCOUNTER → 2024-11-17 | Outpatient (CLI) | payer MEDICARE, MEDICAID | LOC: M PAIN 11:30 | PROVIDERS: ATTEND Nurse Practitioner Family | DX: M96.1 Postlaminectomy syndrome, not elsewhere classified (principal); Z79.891 Long term (current) use of opiate analgesic; G89.29 Other chronic pain; E11.9 Type 2 diabetes mellitus without complications; G82.20 Paraplegia, unspecified; Z79.4 Long term (current) use of insulin; Z79.899 Other long term (current) drug therapy; Z88.1 Allergy status to other antibiotic agents ==

== ENCOUNTER → 2025-01-12 | Outpatient (CLI) | payer MEDICARE, MEDICAID | LOC: M PAIN 11:30 | PROVIDERS: ATTEND Nurse Practitioner Family | DX: M96.1 Postlaminectomy syndrome, not elsewhere classified (principal); G82.20 Paraplegia, unspecified; G89.29 Other chronic pain; Z79.4 Long term (current) use of insulin; Z79.899 Other long term (current) drug therapy; Z88.1 Allergy status to other antibiotic agents; Z88.8 Allergy status to other drugs, medicaments and biological substances ==

== ENCOUNTER → 2025-02-24 | Outpatient (CLI) | payer MEDICARE, MEDICAID | LOC: M RAD 12:22 | PROVIDERS: ATTEND Nurse Practitioner Family | DX: M47.814 Spondylosis without myelopathy or radiculopathy, thoracic region (principal); M54.6 Pain in thoracic spine; M25.551 Pain in right hip; M25.552 Pain in left hip; R00.0 Tachycardia, unspecified; Z79.891 Long term (current) use of opiate analgesic ==